=== PATIENT | male | born 1960 | race Caucasian/White ===

== ENCOUNTER → 2024-04-07 12:48 | Outpatient (REF) | payer MEDICARE, OTHER, SELFPAY | LOC: RCS 12:48 | PROVIDERS: ATTENDING PHYSICIAN Internal Medicine; FAMILY PHYSICIAN Student in an Organized Health Care Education/Training Program | DX: I42.1 Obstructive hypertrophic cardiomyopathy (principal); I35.1 Nonrheumatic aortic (valve) insufficiency; I34.0 Nonrheumatic mitral (valve) insufficiency; Z98.890 Other specified postprocedural states; I44.7 Left bundle-branch block, unspecified | CPT/HCPCS: 93306 ==

== ENCOUNTER → 2024-05-03 14:00 | Outpatient (REF) | payer MEDICARE, SELFPAY | LOC: RAD 14:00 | PROVIDERS: ATTENDING PHYSICIAN Internal Medicine; FAMILY PHYSICIAN Student in an Organized Health Care Education/Training Program | DX: I42.1 Obstructive hypertrophic cardiomyopathy (principal) | CPT/HCPCS: 71275; Q9967 ==

== ENCOUNTER → 2025-07-05 13:32 | Outpatient (REF) | payer MEDICARE, SELFPAY | LOC: RCS 13:32 | PROVIDERS: ATTENDING PHYSICIAN Internal Medicine; FAMILY PHYSICIAN Student in an Organized Health Care Education/Training Program | DX: I42.1 Obstructive hypertrophic cardiomyopathy (principal); I44.7 Left bundle-branch block, unspecified; I10 Essential (primary) hypertension; I77.810 Thoracic aortic ectasia; I35.1 Nonrheumatic aortic (valve) insufficiency; I34.0 Nonrheumatic mitral (valve) insufficiency | CPT/HCPCS: 93306 ==

== ENCOUNTER → 2025-11-21 16:34 | Outpatient (REF) | payer MEDICARE, SELFPAY | LOC: RAD 16:34 | PROVIDERS: ATTENDING PHYSICIAN Internal Medicine; FAMILY PHYSICIAN Student in an Organized Health Care Education/Training Program | DX: I42.1 Obstructive hypertrophic cardiomyopathy (principal); I77.810 Thoracic aortic ectasia; Z98.890 Other specified postprocedural states | CPT/HCPCS: 71275; Q9967 ==